=== PATIENT | female | born 1935 | race Caucasian/White ===

== ENCOUNTER → 2016-04-22 | Outpatient (CLI) | payer OTHER ==
[~2016-04-22] MED LIST: ALBU8.5H4 IH; AZIT250T PO; GFN600TCR PO; LEVO100T PO; NEBI5TAB8 GT; PRCD5U PO
--- NOTE | 2016-04-22 14:23 | Diagnostic Imaging Report ---
PROCEDURE: MR angiography of the brain without the use of contrast. TECHNIQUE: 3D [id number] non contrast enhanced MR angiography of the head was performed. A source data was reformatted into rotating MIP projections. INDICATION: Right-sided pulsatile tinnitus. FINDINGS: Intracranial arterial structures reveal no focal aneurysm, dissection, intraluminal filling defect, thrombus or vascular malformation. The distal right cervical and skull base level right internal carotid artery shows a very tortuous course and appears narrowed at its petrous segment. This area, however, is degraded by artifact but a hemodynamically significant degree of stenosis cannot be excluded. Would suggest a correlative CT angio head and neck for its further evaluation. This will also afford greater clarification of the vascular osseous interfaces in this patient with pulsatile tinnitus. IMPRESSION: Suspicion for focal stenosis of right ICA at its petrous segment versus a skull base artifact. Tortuous right ICA. No aneurysm or vascular malformation apparent. Consider CT angiogram evaluation for further workup of this possible stenosis as well as assessing arterial osseous relationships. No other abnormality. Dictated by: Dictated on workstation # [id number]
== END ==
LOC: RAD 10:28
PROVIDERS: ATTEND Family Medicine
DX: H93.A1 Pulsatile tinnitus, right ear (principal)
CPT/HCPCS: 70544

== ENCOUNTER → 2016-04-26 | Outpatient (CLI) | payer OTHER ==
--- NOTE | 2016-04-26 10:13 | Diagnostic Imaging Report ---
Clinical indication: Patient with right pulsatile tinnitus, focal stenosis right ICA. Patient stated right leg pain started a few days ago. Exams: 1: Head CT without IV contrast. Coronal and sagittal reformatted images were created. 2: CT angiogram of the head and neck performed with 100 cc of Omnipaque 300 IV contrast. Sagittal and coronal MIP reformations were created for better visualization of vascular anatomy. Comparison: MRA of the head without IV contrast dated 04/22/2016. Findings: Head CT: Skull base streak artifact obscures portions of brainstem and posterior fossa. There is no evidence of acute cerebral infarct, intracranial hemorrhage, or gross mass effect. There is no abnormal IV contrast enhancement of the brain parenchyma. There a few focal areas of low-attenuation white matter changes in both cerebral hemispheres, likely representing chronic small vessel ischemic disease. There is normal santoro-white matter distinction. The brain parenchymal volume appears appropriate for patient's age. There is no significant midline shift or herniation. Sella and suprasellar regions are unremarkable as visualized. The visualized [place] vascular structures have normal flow void appearance. There is no evidence of hydrocephalus. 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 The basal cisterns are unremarkable. The skull, extracranial soft tissue, and orbits are unremarkable. There is a small mucus retention cyst in the right maxillary sinus. CT angiogram: There is dense contrast within the right subclavian vein, and superior vena cava which obscures portions of the aortic arch and proximal great vessels. There is dental streak artifact which obscures the neck arteriovascular structures in the region of the C2 vertebral body. Four-vessel aortic arch is seen with the origin of the left cervical vertebral artery arising from the aortic arch. The origin of the right brachiocephalic artery is not visualized because it is not completely imaged. The origin of the left common carotid artery is not completely visualized. There is atherosclerotic disease involving the origin of the cervical left vertebral artery with some motion artifact obscuring the region. There is at least mild narrowing involving the origin of the left cervical vertebral artery. Otherwise, the remainder of the cervical left vertebral artery is patent. There is mild atherosclerotic plaque involving the mid left subclavian artery without significant stenosis. The bilateral common carotid arteries, bilateral ICA, and bilateral ECA are patent without significant stenosis. The mid and distal portions of the bilateral cervical ICA are tortuous. The right cervical vertebral artery is patent without significant stenosis. There is a roughly 3 mm wide, shallow broad based area of prominence involving the proximal left A1 DAMIEN seen on the coronal sequence series 89, axial sequence series 8, image 243, and sagittal sequence series 12, image 89. There is the appearance of a possible tiny vascular structure extending caudally from this area. Small aneurysm versus infundibulum may be considered. There is mild narrowing of the proximal petrous portion of the right ICA without significant stenosis. Otherwise, the bilateral cavernous carotid arteries, bilateral MCA, and bilateral DAMIEN vessels are patent and otherwise unremarkable. There is no other concern for aneurysms or evidence of dissection seen. The posterior circulation of the [place] is patent without significant stenosis, vascular malformation, or aneurysm. The visualized dural venous sinuses are patent without significant abnormality. The thyroid gland is very small in size which may be from post treatment changes. The remainder of the neck soft tissue structures are unremarkable. The lung apices show bilateral apical pleural-parenchymal thickening/scarring. There is cervical spine degenerative disease with vertebral body spurs and facet arthropathy. Impression: 1: There is mild narrowing of the proximal petrous portion of the right ICA which is seen on the comparison study with no significant stenosis seen. 2: Possible 3 mm wide broad-based saccular aneurysm versus infundibulum involving the proximal aspect of the left A1 DAMIEN. 3: Least mild narrowing of the origin of the left cervical vertebral artery. 4: Age-related brain parenchymal changes. Dictated by: Dictated on workstation # [id number]
== END ==
LOC: RAD 08:36
PROVIDERS: ATTEND Family Medicine
DX: I65.21 Occlusion and stenosis of right carotid artery (principal)
CPT/HCPCS: 70496; 70498; Q9967